=== PATIENT | male | born 1965 | race Hispanic/Latino ===

== ENCOUNTER → 2020-02-04 | Outpatient (CLI) | payer BC | END | disposition home or self-care (01) | LOC: RAH 12:16 | PROVIDERS: ATTEND Urology | DX: N20.1 Calculus of ureter (principal) | CPT/HCPCS: 74176 ==

== ENCOUNTER → 2023-11-13 | Outpatient (CLI) | payer OTHER | END | disposition home or self-care (01) | LOC: OIH 08:37 | PROVIDERS: ATTEND Physician Assistant | DX: Z13.6 Encounter for screening for cardiovascular disorders (principal) | CPT/HCPCS: 75571 ==